=== PATIENT | female | born 1970 | race African-American/Black ===

== ENCOUNTER 2017-12-07 08:10 | Emergency (ER) | payer OTHER ==
[2017-12-07 08:14] VITALS: TEMP 99.1; BMI 26.6
--- NOTE | 2017-12-07 09:41 | PDOC ---
History of Present Illness <Guevara Mcneill - Last Filed: 12/07/17 11:24> - General History Source: Patient Exam Limitations: No Limitations - History of Present Illness Initial Comments: 12/07/17 09:18 The patient is a 47F with no PMH who presents to the ED complaining of vaginal bleeding. The patient states that her LMP is 10/23/17 and had a positive test on 11/25/17. She states that she started spotting yesterday and has bled through 4 pads up to her presentation today. She also admits to clotting with streaks of blood, associated with cramping that started yesterday. 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 The patient is also complaining of 3 episodes of low back pain which started 1 week ago and were days apart from each other. She states that the back pain felt like her upper and lower body were being tugged from each other. She denies any current symptoms. She denies CP, SOB, hematuria , dysuria, flank pain, vaginal d/c. <Adolfo Mallory - Last Filed: 12/07/17 11:45> - General Chief Complaint: Vaginal Bleeding Stated Complaint: EXCESS BLEEDING Time Seen by Provider: 12/07/17 08:39 Past History <Guevara Mcneill - Last Filed: 12/07/17 11:24> - Past Medical History COPD: No - Suicide/Smoking/Psychosocial Hx Smoking History: Never smoked Information on smoking cessation initiated: No Hx Alcohol Use: No Drug/Substance Use Hx: No Substance Use Type: None <Adolfo Mallory - Last Filed: 12/07/17 11:45> - Past Medical History Allergies/Adverse Reactions: Allergies Allergy/AdvReac Type Severity Reaction Status Date / Time sardines Allergy Uncoded 12/07/17 08:14 Home Medications: Ambulatory Orders NK [No Known Home Medication] 12/07/17 Review of Systems - Review of Systems Able to Perform ROS?: Yes Comments:: 12/07/17 10:10 GENERAL/CONSTITUTIONAL: No fever or chills. No weakness. HEAD, EYES, EARS, NOSE AND THROAT: No change in vision. No ear pain or discharge. No sore throat. GASTROINTESTINAL: Positive for abdominal cramping in lower quadrants b/l. No nausea, vomiting, diarrhea, constipation, or abdominal pain. GENITOURINARY: Positive for vaginal bleeding. No dysuria, frequency, hematuria, or change in urination. CARDIOVASCULAR: No chest pain, palpitations, or lightheadedness. RESPIRATORY: No cough, wheezing, shortness of breath, or hemoptysis. MUSCULOSKELETAL: No joint or muscle swelling or pain. No neck or back pain. SKIN: No rash or lesions. NEUROLOGIC: No headache, numbness, tingling, weakness, loss of consciousness, or change in strength/sensation. ENDOCRINE: No increased thirst. No abnormal weight change. HEMATOLOGIC/LYMPHATIC: No anemia, easy bleeding, or history of blood clots. ALLERGIC/IMMUNOLOGIC: No hives or skin allergy. 12/07/17 10:10 Is the patient limited [place] proficient: No <Adolfo Mallory - Last Filed: 12/07/17 11:45> *Physical Exam - Vital Signs Last Vital Signs Temp Pulse Resp BP Pulse Ox 99.1 F 93 H 18 137/90 100 12/07/17 08:12 12/07/17 08:12 12/07/17 08:12 12/07/17 08:12 12/07/17 08:12 <Guevara Mcneill - Last Filed: 12/07/17 11:24> - Vital Signs Last Vital Signs Temp Pulse Resp BP Pulse Ox 99.1 F 93 H 18 137/90 100 12/07/17 08:12 12/07/17 08:12 12/07/17 08:12 12/07/17 08:12 12/07/17 08:12 - Physical Exam Comments: 12/07/17 10:11 GENERAL: Well developed, well nourished. Awake and alert. No acute distress. HEENT: Normocephalic, atraumatic. Hearing grossly normal. Moist mucous membranes. NECK: Supple. Full ROM. No JVD. Carotid pulses 2+ and symmetric, without bruits. CARDIOVASCULAR: Regular rate and rhythm. No murmurs, rubs, or gallops. PULMONARY: No evidence of respiratory distress. Lungs clear to auscultation bilaterally. No wheezing, rales or rhonchi. ABDOMINAL: Soft. Non-tender. Non-distended. No rebound or guarding. GENITOURINARY: No CVA tenderness bilaterally. PELVIC: Gross blood in vaginal vault. Closed cervical os. No CMT or adnexal tenderness. MUSCULOSKELETAL: Normal range of motion at all joints. No bony deformities or tenderness. EXTREMITIES: No cyanosis. No clubbing. No edema. No calf tenderness. SKIN: Warm and dry. Normal capillary refill. No rashes. No jaundice. NEUROLOGICAL: Alert, awake, appropriate. Cranial nerves 2-12 intact. Normal speech. Gait is normal without ataxia. PSYCHIATRIC: Cooperative. Good eye contact. Appropriate mood and affect. <Adolfo Mallory - Last Filed: 12/07/17 11:45> ED Treatment Course - LABORATORY CBC & Chemistry Diagram: 12/07/17 09:03 12/07/17 09:03 - ADDITIONAL ORDERS Additional order review: Laboratory Results 12/07/17 12/07/17 12/07/17 09:35 09:03 09:03 Sodium 141 Potassium 4.4 Chloride 109 H Carbon Dioxide 27 Anion Gap 5 L BUN 13 Creatinine 1.0 Creat Clearance w eGFR 59.69 Random Glucose 98 Calcium 8.5 Total Bilirubin 0.2 AST 15 ALT 21 Alkaline Phosphatase 42 L Total Protein 7.0 Albumin 3.4 Beta HCG, Quant 84.8 Urine Color Urine Appearance Urine pH Ur Specific [place] Urine Protein Urine Glucose (UA) Urine Ketones Urine Blood Urine Nitrite Urine Bilirubin Urine Urobilinogen Ur Leukocyte Esterase Urine HCG, Qual Blood Type A POSITIVE Antibody Screen Negative 12/07/17 09:03 Sodium Potassium Chloride Carbon Dioxide Anion Gap BUN Creatinine Creat Clearance w eGFR Random Glucose Calcium Total Bilirubin AST ALT Alkaline Phosphatase Total Protein Albumin Beta HCG, Quant Urine Color Straw Urine Appearance Clear Urine pH 6.0 Ur Specific [place] 1.010 Urine Protein Negative Urine Glucose (UA) Negative Urine Ketones Negative Urine Blood Negative Urine Nitrite Negative Urine Bilirubin Negative Urine Urobilinogen Negative Ur Leukocyte Esterase Negative Urine HCG, Qual Positive Blood Type Antibody Screen 12/07/17 09:03 RBC 4.77 MCV 89.4 MCHC 32.7 RDW 13.7 MPV 9.5 Neutrophils % 57.8 Lymphocytes % 32.1 Monocytes % 7.9 Eosinophils % 1.5 Basophils % 0.7 <Guevara Mcneill - Last Filed: 12/07/17 11:24> - LABORATORY CBC & Chemistry Diagram: 12/07/17 09:03 12/07/17 09:03 - RADIOLOGY Radiology Studies Ordered: Category Date Time Status TRANSVAGINAL US PREG [US] Stat Ultrasound 12/07/17 09:12 Ordered <Adolfo Mallory - Last Filed: 12/07/17 11:45> Medical Decision Making - Medical Decision Making 12/07/17 10:12 The patient is a 47F with no PMH who presents after having 2 days of abdominal cramping and vaginal bleeding after having a positive test at the end of October. LMP is 10/23. I am concerned for an . The patient looks well and does not look septic. Pending labs and transvag US. 12/07/17 11:43 US does not show an intrauterine gestational sac. HCG is 80. Likely completed . Pt aware and will be d/c with OB f/u. <Adolfo Mallory - Last Filed: 12/07/17 11:45> *DC/Admit/Observation/Transfer <Guevara Mcneill - Last Filed: 12/07/17 11:24> <Adolfo Mallory - Last Filed: 12/07/17 11:45> - Referrals Referrals: Rose Vazquez MD [Primary Care Provider] - Melvi Turner MD [Staff Physician] - - Patient Instructions Printed Discharge Instructions: DI for Miscarriage Additional Instructions: Your ultrasound did not show anything inside your uterus, which could represent a miscarriage. You must follow up with an prepared foods production team member within 1 week for a re-evaluation and to re- check your bloodwork and ultrasound. Call the number provided to make an appointment with our prepared foods production team member clinic. If you experience any worsening bleeding, abdominal pain, fevers, or any other concerning symptoms, return to the ER immediately. - Post Discharge Activity
[2017-12-07 09:56] LABS: URINE APPEARANCE CLEAR; URINE BILIRUBIN NEGATIVE (NEGATIVE); URINE BLOOD NEGATIVE (NEGATIVE); URINE COLOR STRAW; URINE GLUCOSE (UA) NEGATIVE (NEGATIVE); URINE KETONE NEGATIVE (NEGATIVE); URINE LEUK ESTERASE NEGATIVE (NEGATIVE); URINE NITRITE NEGATIVE (NEGATIVE); URINE PROTEIN NEGATIVE (NEGATIVE); URINE UROBILINOGEN NEGATIVE mg/dL (0.2-1.0)
[2017-12-07 09:57] LABS: HCG,QUALITATIVE URINE POSITIVE
[2017-12-07 10:03] LABS: BASO % 0.7 % (0-2.0); EOS % 1.5 % (0-4.5); HEMATOCRIT 42.7 % (32.4-45.2); LYMPH % 32.1 % (8-40); MCH 29.3 pg (25.7-33.7); MCHC 32.7 g/dl (32.0-36.0); MEAN CELL VOLUME 89.4 fl (80-96); MEAN PLT VOLUME 9.5 fl (7.5-11.1); MONO % 7.9 % (3.8-10.2); NEUT % 57.8 % (42.8-82.8); PLATELET COUNT 181 K/MM3 (134-434); RBC 4.77 M/mm3 (3.60-5.2); RDW 13.7 % (11.6-15.6); WHITE BLOOD COUNT 7.1 K/mm3 (4.0-10.0)
[2017-12-07 10:24] LABS: ALBUMIN 3.4 g/dl (3.4-5.0); ANION GAP 5 (8-16); BILIRUBIN,TOTAL 0.2 mg/dL (0.2-1.0); BLOOD UREA NITROGEN 13 mg/dL (7-18); CALCIUM 8.5 mg/dL (8.5-10.1); CHLORIDE 109 mmol/L (98-107); CO2 27 mmol/L (21-32); GLUCOSE,RANDOM 98 mg/dL (74-106); POTASSIUM 4.4 mmol/L (3.5-5.1); SGOT/AST 15 U/L (15-37); SGPT/ALT 21 U/L (12-78); SODIUM 141 mmol/L (136-145)
[2017-12-07 10:25] LABS: ALK PHOS 42 U/L (45-117)
--- NOTE | 2017-12-07 10:33 | PDOC ---
Attending Attestation - Resident Resident Name: Adolfo Mallory - ED Attending Attestation I have performed the following: I have examined & evaluated the patient, The case was reviewed & discussed with the resident, I agree w/resident's findings & plan, Exceptions are as noted - HPI HPI: 12/07/17 10:27 The patient is a 47 year old female, , with no significant past medical history, who presents to the emergency department with 2 days of vaginal bleeding with clots. She reportedly took a test on 11/25/17 which was positive. The patient reports soaking 4 pads with blood since yesterday. No significant abdominal pain. No flank pain. LMP 10/23/17 She denies chest pain, shortness of breath, headache and dizziness. She denies fever, chills, nausea, vomit, diarrhea and constipation. She denies dysuria, frequency, urgency and hematuria. Allergies: NKDA " - Physicial Exam PE: 12/07/17 10:33 "GENERAL: Awake, alert, and fully oriented, in no acute distress HEAD: No signs of trauma EYES: PERRLA, EOMI, sclera anicteric, conjunctiva clear ENT: Auricles normal inspection, hearing grossly normal, nares patent, oropharynx clear without exudates. Moist mucosa NECK: Nontender, no stepoffs, Normal ROM, supple, no lymphadenopathy, JVD, or masses LUNGS: Breath sounds equal, clear to auscultation bilaterally. No wheezes, and no crackles HEART: Regular rate and rhythm, normal S1 and S2, no murmurs, rubs or gallops ABDOMEN: Soft, nontender, normoactive bowel sounds. No guarding, no rebound. No masses : blood with clots in vault, os closed, no CMT, no adnexal masses EXTREMITIES: Normal range of motion, no edema. No clubbing or cyanosis. No cords, erythema, or tenderness NEUROLOGICAL: Cranial nerves II through XII intact. 5/5 strength and sensation in all extremities, Normal speech, normal gait SKIN: Warm, Dry, normal turgor, no rashes or lesions noted. " - Medical Decision Making 12/07/17 10:33 47 F with vaginal bleeding, positive UPT at home. Likely spontaneous Ab - os closed at this time. Possible ectopic but pt with no pain. - Labs, beta HCG, T&S - TVUS 12/07/17 11:07 CBC,CMP WBC 7.1 K/mm3 (4.0-10.0) 12/07/17 09:03 RBC 4.77 M/mm3 (3.60-5.2) 12/07/17 09:03 Hgb 14.0 GM/dL (10.7-15.3) 12/07/17 09:03 Hct 42.7 % (32.4-45.2) 12/07/17 09:03 MCV 89.4 fl (80-96) 12/07/17 09:03 MCH 29.3 pg (25.7-33.7) 12/07/17 09: MCHC 32.7 g/dl (32.0-36.0) 12/07/17 09:03 RDW 13.7 % (11.6-15.6) 12/07/17 09:03 Plt Count 181 K/MM3 (134-434) 12/07/17 09:03 MPV 9.5 fl (7.5-11.1) 12/07/17 09:03 Neutrophils % 57.8 % (42.8-82.8) 12/07/17 09:03 Lymphocytes % 32.1 % (8-40) 12/07/17 09: Monocytes % 7.9 % (3.8-10.2) 12/07/17 09:03 Eosinophils % 1.5 % (0-4.5) 12/07/17 09:03 Basophils % 0.7 % (0-2.0) 12/07/17 09:03 Sodium 141 mmol/L (136-145) 12/07/17 09:03 Potassium 4.4 mmol/L (3.5-5.1) 12/07/17 09:03 Chloride 109 mmol/L (98-107) H 12/07/17 09:03 Carbon Dioxide 27 mmol/L (21-32) 12/07/17 09:03 Anion Gap 5 (8-16) L 12/07/17 09:03 BUN 13 mg/dL (7-18) 12/07/17 09:03 Creatinine 1.0 mg/dL (0.55-1.02) 12/07/17 09:03 Creat Clearance w eGFR 59.69 (>60) 12/07/17 09:03 Random Glucose 98 mg/dL (74-106) 12/07/17 09:03 Calcium 8.5 mg/dL (8.5-10.1) 12/07/17 09:03 Total Bilirubin 0.2 mg/dL (0.2-1.0) 12/07/17 09:03 AST 15 U/L (15-37) 12/07/17 09:03 ALT 21 U/L (12-78) 12/07/17 09:03 Alkaline Phosphatase 42 U/L (45-117) L 12/07/17 09:03 Total Protein 7.0 g/dl (6.4-8.2) 12/07/17 09:03 Albumin 3.4 g/dl (3.4-5.0) 12/07/17 09:03 Beta HCG, Quant 84.8 mIU/ml 12/07/17 09:03 TVUS with no IUP. Pt with normal vitals, stable H/H. Abdominal exam benign. Clinically stable for DC. instructed to f/u with OB.
[2017-12-07 12:12] VITALS: BP 128/82; PULSE 68
== END 2017-12-07 12:14 | disposition home or self-care (01) ==
LOC: JER 08:10
DX: O26.891 Other specified pregnancy related conditions, first trimester (principal); O02.1 Missed abortion; Z3A.00 Weeks of gestation of pregnancy not specified
CPT/HCPCS: 36415; 76817-TC; 80053; 81003; 84702; 84703; 85025; 86850; 86900; 86901; 87086; 99284-25

== ENCOUNTER 2020-11-13 00:40 | Emergency (ER) | payer OTHER ==
[2020-11-13 01:00] VITALS: BP 160/97; PULSE 86; TEMP 99.1
[2020-11-13] MEDS ORDERED: FLUCONAZOLE 150 MG TABLET PO ONE ×2 (01:17→01:51)
[2020-11-13 01:22] LABS: PH,URINE 6.5 (5.0-8.0); URINE APPEARANCE CLEAR; URINE BILIRUBIN NEGATIVE (NEGATIVE); URINE COLOR YELLOW; URINE GLUCOSE (UA) NEGATIVE (NEGATIVE); URINE KETONE NEGATIVE (NEGATIVE); URINE LEUK ESTERASE NEGATIVE (NEGATIVE); URINE NITRITE NEGATIVE (NEGATIVE); URINE PROTEIN NEGATIVE (NEGATIVE); URINE UROBILINOGEN 0.2 mg/dL (0.2-1.0)
[2020-11-13 01:28] LABS: HCG,QUALITATIVE URINE Negative
== END 2020-11-13 01:56 | disposition home or self-care (01) ==
LOC: JER 00:40
DX: B37.3 Candidiasis of vulva and vagina (principal)
CPT/HCPCS: 81003; 84703; 87086; 99284-25